=== PATIENT | male | born 1975 | race Hispanic/Latino ===

== ENCOUNTER 2021-11-21 10:40 | Emergency (ER) | payer SELFPAY ==
[~2021-11-21] VITALS: Ht 175.3 cm; Wt 81.8 kg
[2021-11-21] MEDS ORDERED: IBUPROFEN 600 MG TAB PO STA (11:32)
[2021-11-21] MEDS ORDERED: CYCLOBENZAPRINE HCL 10 MG TAB PO ONE (11:45)
[2021-11-21] MEDS ORDERED: CYCLOBENZAPRINE HCL 10 MG TAB ONE (11:49)
[2021-11-21] MEDS ORDERED: IBUPROFEN 600 MG TAB ONE (11:50)
[2021-11-21] MEDS ORDERED: PREDNISONE50 MG PO (13:13)
[2021-11-21] MEDS ORDERED: PREDNISONE 20 MG TAB PO ONE (13:15)
[2021-11-21] MEDS ORDERED: CYCLOBENZAPRINE10 MG PO (13:15)
== END 2021-11-21 13:31 | disposition home or self-care (01) ==
LOC: FSED 11:11
DX: M54.12 Radiculopathy, cervical region (principal); R20.0 Anesthesia of skin; R51.9 Headache, unspecified; Z86.16 Personal history of COVID-19
CPT/HCPCS: 70450; 72125; 99283; J7512